=== PATIENT | female | born 1965 | race Caucasian/White ===

== ENCOUNTER 2024-12-01 17:23 | Emergency (ER) | payer MEDICARE ==
[~2024-12-01] VITALS: Ht 165.1 cm; Wt 78.0 kg
[2024-12-01 18:20] VITALS: TEMP 97.8
[2024-12-01 20:28] VITALS: PULSE 89; RESP 16; O2SAT 99
[2024-12-01] MEDS: KETOROLAC TROMETHAMINE 60 MG/2 ML VIAL IM STA (20:33)
== END 2024-12-01 20:40 | disposition home or self-care (01) ==
LOC: ER 17:49
DX: M70.52 Other bursitis of knee, left knee (principal)
CPT/HCPCS: 73562; 99283; J1885